=== PATIENT | female | born 1955 | race Two or more races ===

== ENCOUNTER 2021-03-26 07:15 | Day surgery (SDC) | payer MEDICARE, OTHER ==
[~2021-03-26] VITALS: Ht 167.6 cm; Wt 91.6 kg
[~2021-03-26 07:15] MED LIST: B COMPLEX1 EACH PO; CITRACAL + D E1 EACH PO; DITROPAN XL5 MG PO; GINKGO BILOBA120 M1 PO; LEVOTHYROXINE112 MC1 PO; OMEGA-31000 MG PO; ZESTRIL40 MG PO
--- NOTE | 2021-03-26 09:37 | NUR ---
03/26/21 0937 Ayde Cavazos 0978-PATIENT ARRIVED TO PACU ON 2L NC RR EVEN. REACTIVE TO VERBAL STIMULI DENIES PAIN OR NAUSEA. LAYING LEFT LATERAL ABDOMEN SOFT IVF INFUSING
--- NOTE | 2021-03-27 06:13 | OR ---
[facility] [address] [place], [place] [address] Signed DATE OF OPERATION: 03/26/2021 SURGEON: Rosa Wong MD PREOPERATIVE DIAGNOSIS: Screening. POSTOPERATIVE DIAGNOSES: 1. 12 mm sessile polyp, distal right colon (snare/tattoo). 2. 5 mm polyp, proximal transverse colon. 3. 5 mm polyp, mid transverse colon. 4. 5 mm polyp at 45 cm. PROCEDURE: Colonoscopy with snare polypectomy, hot biopsy and injection of tattoo. ESTIMATED BLOOD LOSS: None. INDICATIONS: Cira is a 65-year-old female, asked to see me for two issues. We have her scheduled in a few weeks for the left breast biopsy. In addition, she underwent a negative screening colonoscopy with Dr. Mooney in her 50s. Currently, she has no lower GI complaints. There is no family history of colon cancer or polyps. She therefore presents for a followup screening colonoscopy. In the office, I gave her pamphlets written in both Tajik and in Bengali with respect to the colonoscopy. She understands the nature of that test. There is risk including, but not limited to gas bloating, crampy abdominal pain, bleeding, perforation requiring surgery, and missed diagnosis. He sees she told me today that she was up all night with a bowel prep. In that regard, she should start her bowel prep earlier in the day. In addition, she still had some areas of particulate stool matter simply could not suction through the scope. That would shoot therefore she would probably benefit from a double bowel prep. She also understands the need for IV conscious sedation. She had expressed understanding and wished to proceed. PROCEDURE NOTE: Cira was taken into our endoscopy suite and placed in the left lateral decubitus position. She was given IV sedation with 7 mg of Versed and 100 mcg of fentanyl. A digital rectal exam was performed and this was unremarkable. The adult colonoscope was introduced and advanced under direct visualization of the camera without difficulty. Electronically Signed By: ROSA WONG MD 03/27/21 0613 PATIENT NAME: CIRA GUO OPERATIVE REPORT DATE OF : 51 REPORT #: [id number] PHYSICIAN: ROSA WONG MD PCP: SAGRARIO ALONSO MD REPORT IS CONFIDENTIAL AND NOT TO BE RELEASED WITHOUT AUTHORIZATION [facility] [address] [place], [place] [address] Signed Unfortunately, she had some areas of particulate stool matter, I could not suction through the scope. She would probably benefit from a double bowel prep in the future. We could see the appendiceal orifice and the ileocecal valve. The scope was then slowly withdrawn. We used a combination of our snare and hot biopsy forceps to remove the polyp in the distal right colon. We then injected a tattoo at the base of that The other polyps were removed with the help of hot biopsy forceps. We did not see any diverticula. The rectum was unremarkable. Upon retroflexion of the scope, there was no additional pathology noted above the anal canal. After this, the gas was suctioned out and colonoscope removed. Cira tolerated the procedure quite well. RECOMMENDATIONS: I will see Cira back in my office in 7 to 14 days to review her results. She should consider double bowel prep in the future. She is also scheduled for her left breast biopsy here in a few weeks. Rosa Wong MD ALB/MODL /[id number] cc: MD Sagrario Thomason MD Copies: ROSA WONG MD, AMY MD ~ Electronically Signed By: ROSA WONG MD 03/27/21 0613 PATIENT NAME: CIRA GUO OPERATIVE REPORT DATE OF : 51 REPORT #: [id number] PHYSICIAN: ROSA WONG MD PCP: SAGRARIO ALONSO MD REPORT IS CONFIDENTIAL AND NOT TO BE RELEASED WITHOUT AUTHORIZATION
--- NOTE | 2021-03-27 11:21 | PATH ---
[facility] [address] [place], [place] [address] Signed SPECIMEN(S): A ASCENDING/RIGHT COLON POLYP SPECIMEN(S): B PROXIMAL TRANSVERSE COLON POLYP SPECIMEN(S): C MID TRANSVERSE COLON POLYP SPECIMEN(S): D POLYP AT 45 CM SPECIMEN SOURCE: A. ASCENDING/RIGHT COLON POLYP B. PROXIMAL TRANSVERSE COLON POLYP C. MID TRANSVERSE COLON POLYP D. POLYP AT 45 CM CLINICAL HISTORY: Screening colonoscopy. FINAL PATHOLOGIC DIAGNOSIS: A. Colon, ascending/right, polyp, polypectomy: - Fragments of tubular adenoma. - Negative for high-grade dysplasia or malignancy. B. Colon, proximal transverse, polyp, polypectomy: - Tubular adenoma. - Negative for high-grade dysplasia or malignancy. C. Colon, mid transverse, polyp, polypectomy: - Tubular adenoma. - Negative for high-grade dysplasia or malignancy. D. Colon, polyp at 45 cm, polypectomy: - Fragments of hyperplastic polyp. - Negative for dysplasia or malignancy. NAL:mfr:C2NR MICROSCOPIC EXAMINATION: Histologic sections of all submitted blocks are examined by light microscopy. These findings, together with the gross examination, support the pathologic diagnosis. GROSS DESCRIPTION: Four specimens are received in four containers, labeled "OJ." A. The specimen, labeled "OJ, ascending colon polyp," is received in formalin and consists of multiple villar soft tissue fragments that measure 1.5 x 1.3 x 0.2 cm in aggregate. The specimen is entirely submitted in cassette (A1). B. The specimen, labeled "OJ, proximal transverse colon polyp," is received in PATIENT NAME: LEI GUO PATHOLOGY DATE OF : 51 REPORT #: [id number] PHYSICIAN: OMAR PATHOLOGY PCP: SAGRARIO ALONSO MD REPORT IS CONFIDENTIAL AND NOT TO BE RELEASED WITHOUT AUTHORIZATION [facility] [address] [place], [place] [address] Signed formalin and consists of one villar soft tissue fragment that measures 0.2 cm in greatest dimension. The specimen is entirely submitted in cassette (B1). C. The specimen, labeled "OJ, mid transverse colon polyp," is received in formalin and consists of one villar soft tissue fragment that measures 0.1 cm in greatest dimension. The specimen is entirely submitted in cassette (C1). D. The specimen, labeled "OJ, colon polyp at 45 cm," is received in formalin and consists of two villar soft tissue fragments that measure 0.2 cm in greatest dimension. The specimen is entirely submitted in cassette (D1). JS (under the direct supervision of a pathologist) The Gross Description was prepared using a voice recognition system. The report was reviewed for accuracy; however, sound-alike word errors, addition and/or deletions may occur. If there is any question about this report, please contact Client Services. PERFORMING LABORATORY: The technical component was performed by [facility], [address] [place] [id number] (Integrated Campaign Manager: Sagrario Dooley MD; CLIA# [id number]). [facility], [address] [address] (CLIA# [id number]). Diagnostician: Brenda Sherman MD Pathologist Electronically Signed 03/27/2021 Copies: ~ PATIENT NAME: LEI GUO PATHOLOGY DATE OF : 51 REPORT #: [id number] PHYSICIAN: OMAR BE PCP: SAGRARIO ALONSO MD REPORT IS CONFIDENTIAL AND NOT TO BE RELEASED WITHOUT AUTHORIZATION
== END 2021-03-26 10:10 | disposition home or self-care (01) ==
LOC: OPS 07:15 → DS 07:15 → OPS 09:00
PROVIDERS: ATTEND Colon & Rectal Surgery
PROC: 0DBL8ZX Excision of Transverse Colon, Via Natural or Artificial Opening Endoscopic, Diagnostic (ICD-10-PCS; 2021-03-26)
PROC: 0DBF8ZX Excision of Right Large Intestine, Via Natural or Artificial Opening Endoscopic, Diagnostic (ICD-10-PCS; 2021-03-26)
PROC: 3E0H8KZ Introduction of Other Diagnostic Substance into Lower GI, Via Natural or Artificial Opening Endoscopic (ICD-10-PCS; 2021-03-26)
PROC: 0DBK8ZX Excision of Ascending Colon, Via Natural or Artificial Opening Endoscopic, Diagnostic (ICD-10-PCS; principal; 2021-03-26 09:00)
DX: Z12.11 Encounter for screening for malignant neoplasm of colon (principal); D12.2 Benign neoplasm of ascending colon; D12.3 Benign neoplasm of transverse colon; I10 Essential (primary) hypertension; E03.9 Hypothyroidism, unspecified; K21.9 Gastro-esophageal reflux disease without esophagitis; N63.0 Unspecified lump in unspecified breast; Z88.0 Allergy status to penicillin; Z88.2 Allergy status to sulfonamides
CPT/HCPCS: 99153; G0500; J2250; J3010; J7121